=== PATIENT | female | born 1980 | race Caucasian/White ===

== ENCOUNTER 2017-03-05 13:11 | Emergency (ER) | payer MEDICARE, MEDICAID ==
[2017-03-05 16:26] LABS: BASOPHILS 0.2 % (0-2); EOSINOPHILS 0.5 % (0-7); HEMATOCRIT 33.9 % (36.0-48.0); HEMOGLOBIN 10.9 g/dL (12-16); IMMATURE GRANULOCYTES 0.1 % (0-5); LYMPHOCYTES 16.1 % (15-50); MCH 28.2 pg (26.0-34.0); MCHC 32.2 g/dL (31.0-37.0); MCV 87.6 fL (80.0-100.0); MEAN PLATELET VOLUME 9.9 fL (7.4-10.4); MONOCYTES 6.5 % (2-11); NEUTROPHILS 76.6 % (40-80); PLATELET COUNT 382 10x3/uL (130-400); RBC 3.87 10x6/uL (4.00-5.40); RDW 13.5 % (11.5-14.5); WBC 8.4 10x3/uL (4.8-10.8)
[2017-03-05 16:43] LABS: INR 2.34 (0.85-1.17); PROTIME 25.8 SECONDS (11.6-15.0)
[2017-03-05 17:16] LABS: ALBUMIN 2.7 g/dL (3.4-5.0); ALKALINE PHOSPHATASE 183 U/L (46-116); ALT (SGPT) 13 U/L (10-68); BILIRUBIN - TOTAL 0.59 mg/dL (0.2-1.3); CALC OSMOLALITY 269 mosm/kg (275-300); CALCIUM 8.4 mg/dL (8.5-10.1); CARBON DIOXIDE 21.8 mmol/L (21.0-32.0); CHLORIDE - SERUM 104 mmol/L (98-107); CREATININE - SERUM 0.3 mg/dL (0.6-1.3); GLUCOSE 97 mg/dL (74-106); PROTEIN - SERUM 5.5 g/dL (6.4-8.2); SODIUM 136 mmol/L (136-145); UREA NITROGEN 8 mg/dL (7-18); eGFR NON AFRICAN AMERICAN > 90 mL/min (90-120)
[2017-03-05 17:23] LABS: PRO BNP 900 pg/mL (0-125)
== END 2017-03-05 18:10 | disposition home or self-care (01) ==
LOC: D.ER 13:11
PROVIDERS: Nurse Practitioner Family
DX: T82.897A Other specified complication of cardiac prosthetic devices, implants and grafts, initial encounter (principal)

== ENCOUNTER 2017-03-19 07:35 | Day surgery (SDC) | payer MEDICARE ==
[~2017-03-19] VITALS: Ht 149.9 cm; Wt 57.2 kg
[2017-03-19 08:06] LABS: HEMATOCRIT 33.6 % (36.0-48.0); HEMOGLOBIN 10.4 g/dL (12-16); MCH 26.9 pg (26.0-34.0); MCV 86.8 fL (80.0-100.0); MEAN PLATELET VOLUME 9.4 fL (7.4-10.4); RBC 3.87 10x6/uL (4.00-5.40); RDW 13.8 % (11.5-14.5); WBC 12.2 10x3/uL (4.8-10.8)
[2017-03-19 08:13] LABS: CALC OSMOLALITY 279 mosm/kg (275-300); CALCIUM 8.5 mg/dL (8.5-10.1); CARBON DIOXIDE 22.7 mmol/L (21.0-32.0); CHLORIDE - SERUM 106 mmol/L (98-107); CREATININE - SERUM 0.5 mg/dL (0.6-1.3); GLUCOSE 134 mg/dL (74-106); POTASSIUM - SERUM 3.8 mmol/L (3.5-5.1); SODIUM 140 mmol/L (136-145); UREA NITROGEN 9 mg/dL (7-18); eGFR NON AFRICAN AMERICAN > 90 mL/min (90-120)
[2017-03-19 08:24] LABS: APTT 44.1 SECONDS (22.8-39.4); INR 2.02 (0.85-1.17); PROTIME 22.8 SECONDS (11.6-15.0)
[2017-03-19] MEDS ORDERED: LISINOPRIL5 MG PO (08:33)
[2017-03-19] MEDS ORDERED: LEVOTHYROXINE50 MCG PO (08:34)
[2017-03-19] MEDS ORDERED: ULTRAM50 MG PO (08:34)
[2017-03-19] MEDS ORDERED: COUMADIN5 MG PO (08:37)
[2017-03-19] MEDS ORDERED: BACLOFEN10 MG PO (08:38)
[2017-03-19 09:48] VITALS: BP 108/55; Ht 149.9 cm; Wt 57.2 kg
--- NOTE | 2017-03-19 10:27 | NUR ---
DR DE PAZ NOTIFIED BY PHONE OF PATIENT'S INR OF 2.02, NO NEW ORDERS RECEIVED. PATIENT BEING TRANSFERRED BY BED TO PRE-OP HOLDING AT THIS TIME
[2017-03-20 10:27] LABS: HCG SERUM NEGATIVE (NEGATIVE)
--- NOTE | 2017-03-23 12:08 | OP ---
PATIENT NAME: TUYET HATFIELD MEDICAL RECORD: [id number] :82 LOCATION:D[facility] ADMISSION DATE: SURGEON: KRIS MIRZA MD DATE OF OPERATION: 03/19/2017 SURGEON: Kris Mirza MD ANESTHESIA: General, Dr. Kramer. OPERATION PERFORMED: Pulse generator exchange. PREOPERATIVE DIAGNOSIS: Third-degree heart block, pulse generator end of life. POSTOPERATIVE DIAGNOSIS: Third-degree heart block, pulse generator end of life. INDICATION FOR OPERATION: Pulse generator end of life. FINDINGS OF THE OPERATION: The newly implanted pulse generator [employer] Adapta [id number], serial number [id number]. ESTIMATED BLOOD LOSS: Less than 5 cc. DESCRIPTION OF PROCEDURE: After informed consent and adequate preoperative medication evaluation, the patient was brought to the operating room, placed on the table in the supine position. After induction of general anesthesia and application of appropriate monitoring devices, the right chest was prepped and draped in a sterile field, utilizing Betadine scrub, alcohol, and Betadine solution. A Betadine-impregnated drape was also used. A 1% lidocaine was infiltrated in the previous incision over the device as well as in the pulse generator pocket. An incision was made and dissection carried down to the pocket. The fibrous pocket was calcified. This was excised. Hemostasis maintained. The pulse generator was exchanged and fired, captured and sensed appropriately. Pocket was irrigated. Instrument count and sponge count were correct times 2. Pocket was closed in layers utilizing 3-0 Vicryl on deep subcutaneous tissue, 5-0 subcuticular Monocryl on the skin. Sterile dressings were applied. The patient tolerated the procedure well and transferred to postanesthesia recovery in satisfactory condition. TRANSINT:[id number] Voice Confirmation ID: [id number] DOCUMENT ID: [id number] KRIS MIRZA MD at 1208 CC: [id number] DICTATION DATE: 03/19/17 1232 [employer]: 03/19/17 2211 [facility] 03/19/[address] [id number]
== END 2017-03-19 16:04 | disposition home or self-care (01) ==
LOC: D.OPS 07:35
PROVIDERS: Anesthesiology; Internal Medicine Cardiovascular Disease
DX: Z45.010 Encounter for checking and testing of cardiac pacemaker pulse generator [battery] (principal); I44.2 Atrioventricular block, complete; Z01.812 Encounter for preprocedural laboratory examination